=== PATIENT | male | born 1980 | race Caucasian/White ===

== ENCOUNTER 2018-10-12 00:29 | Inpatient (IN) ==
[2018-10-12] MEDS ORDERED: ASPIRIN PO ONE (00:43)
[2018-10-12] MEDS ORDERED: ASPIRIN ONE (00:49)
[2018-10-12 01:17] LABS: BASO# 0.06 X1000 (0.0-0.2); BASO% 0.7 % (0.0-0.8); EOS# 0.19 X1000 (0.0-0.7); EOS% 2.3 % (0.0-10.0); HEMATOCRIT 44.5 % (42.0-52.0); HEMOGLOBIN 15.6 g/dL (14.0-18.0); IMM GRAN# 0.05 X1000 (0.0-0.04); IMM GRAN% 0.6 % (0.0-0.5); LYMPH# 2.62 X1000 (1.2-3.4); LYMPH% 32.4 % (20.5-51.1); MCH 30.6 PG (27-31); MCHC 35.1 g/dL (33-37); MCV 87.4 FL (81-99); MONO# 0.81 X1000 (0.11-0.59); MPV 10.7 FL (7.4-10.4); NEUT# 4.36 X1000 (1.4-6.5); PLT 264 X1000 (130-400); RBC 5.09 XMIL (4.7-6.1); RDW 12.5 % (11.5-14.5); WBC 8.09 X1000 (4.8-10.8)
--- NOTE | 2018-10-12 01:19 | EKG Report ---
Test Performed on : 10/12/2018 00:36:24 AM Test Reason : CHEST PAIN/DIZZY Blood Pressure : / mmHG Vent. Rate : 068 BPM Atrial Rate : 068 BPM P-R Int : 160 ms QRS Dur : 090 ms QT Int : 390 ms P-R-T Axes : 050 030 033 degrees QTc Int : 414 ms Normal sinus rhythm. Normal ECG When compared with ECG of 31-AUG-2016 01:23, No significant change was found Unconfirmed Result
[2018-10-12 01:28] LABS: INR 0.85; PROTIME 12.3 Seconds (11.0-16.0); PTT 30.7 Seconds (22.3-41.8)
[2018-10-12 01:33] LABS: AGAP 12; CHLORIDE 107 mmol/L (98-107); POTASSIUM 4.2 mmol/L (3.5-5.1); SODIUM 144 mmol/L (136-145); TCO2 25 mmol/L (25-35)
[2018-10-12 01:34] LABS: ALB/GLOB RATIO 1.9; ALBUMIN 4.3 g/dL (3.5-5.0); ALKALINE PHOSPHATASE 47 U/L (32-122); BUN 15 mg/dL (8-22); CALCIUM 9.5 mg/dL (8.8-10.2); CK PROFILE 121 U/L (24-204); COSMO 288; CREATININE 0.8 mg/dL (0.7-1.2); ESTIMATED GFR > 60; GLUCOSE 108 mg/dL (70-104); GOT 25 U/L (10-34); GPT 52 U/L (10-44); TOTAL BILIRUBIN 0.18 mg/dL (0.20-1.00); TOTAL PROTEIN 6.6 g/dL (6.3-8.3)
[2018-10-12] MEDS ORDERED: MORPHINE IV ONE (01:53)
--- NOTE | 2018-10-12 03:35 | PROVIDER DOCUMENTATION ---
This chart was entered by Rosa Eid Scribe, acting as scribe for Mata Arellano MD. HPI-Chest Pain - General Chief Complaint: Chest Pain Stated Complaint: JITTERY, SOB, CHEST PAIN Time Seen by Provider: 10/12/18 01:23 Source: patient Allergies/Adverse Reactions: Patient Allergies Allergy/AdvReac Type Severity Reaction Status Date / Time diphenhydramine Allergy RASH Verified 08/31/16 01:28 [From Benadryl] Penicillins Allergy ANAPHYLAXIS Verified 08/31/16 01:28 Home Medications: Home Medication List Medication Instructions Recorded Confirmed Last Taken Type Metoprolol [Lopressor] 100 mg PO DAILY 08/31/16 08/31/16 Unknown History - History of Present Illness-CP Nature of Presenting Problem: Pt is 38/m presenting to ED w/ c/p that started yesterday and is mid chest and radiates into back between shoulder blades. Pt has hx of HI and CVA. Pt is not currently taking any medications. Location: reports: substernal Chest Pain Radiation: reports: shoulders (between shoulders) Quality of Pain: reports: stabbing Severity in ED: mild Onset/Duration: 24 hours ago Timing: still present Context/Activities at Onset: reports: none Modifying Factors: improves with: nothing Associated Symptoms: denies: nausea, vomiting Nitro Today/Relief: no nitro taken today Aspirin Treatment Today: no aspirin today Prior Chest Pain/Cardiac Workup: reports: heart attack Similar Symptoms Previously?: Yes Recently Seen Here or By Another Healthcare Provider: No Review of Systems - Adult - REVIEW OF SYSTEMS - ADULT Constitutional: denies: chills, fever Eyes: reports: no symptoms reported Ears, Nose, Mouth & Throat: reports: no symptoms reported Cardiovascular: reports: chest pain Respiratory: reports: no symptoms reported Gastrointestinal: denies: abdominal pain, nausea, vomiting Genitourinary: reports: no symptoms reported Musculoskeletal: reports: no symptoms reported Integumentary: reports: no symptoms reported Neurological: reports: no symptoms reported. denies: dizziness/vertigo, headache/migraines Psychiatric: reports: no symptoms reported Endocrine: reports: no symptoms reported Hematologic/Lymphatic: reports: no symptoms reported Allergic/Immunologic: reports: no symptoms reported All Other Systems: Reviewed and Negative Past History - Adult - PAST MEDICAL HISTORY-ADULT Review of Records: reports: Old Records Reviewed, Nursing Assessment Review, Medications Reviewed, Social history reviewed & non-contributory. Cardiovascular: reports: HI Neurological: reports: other (heat stroke) - SOCIAL HISTORY Smoking: cigarettes, greater than 1 pack/day Alcohol Use Frequency: never Living Situation: family Physical Exam-General - PHYSICAL EXAM-ADULT Initial Vital Signs Reviewed: Yes - CONSTITUTIONAL General Appearance: appears well, alert, no apparent distress - EYES Eyes: PERRL/EOMI, pink conjunctivae - HEAD, EARS, NOSE, MOUTH & THROAT HENMT: normocephalic/atraumatic, moist mucous membranes, normal ENT inspection, TMs normal, pharynx normal - NECK Neck: non-tender, full range of motion, supple, normal inspection - RESPIRATORY Respiratory: lungs clear - CARDIOVASCULAR Cardiovascular: regular rate, rhythm - GASTROINTESTINAL (ABDOMEN) Abdominal Exam: normal bowel sounds, non tender, soft - MUSCULOSKELETAL Extremity: normal range of motion, non-tender, normal gait, normal inspection - SKIN Integumentary: normal color, warm/dry - NEUROLOGIC Neurologic: grossly normal - PSYCHIATRIC Psych/Mental Status: normal mood/affect, normal thought content, normal thought process, oriented x 3 Progress - PLAN OF CARE/RESULTS Progress/Plan/Lab Results: Vital Signs - 8 hr 10/12/18 00:41 Temperature 98.2 F Pulse Rate 64 Respiratory Rate 20 Blood Pressure 145/88 O2 Sat by Pulse Oximetry 96 Laboratory Results - last 24 hr 10/12/18 10/12/18 10/12/18 00:50 00:50 00:50 WBC 8.09 RBC 5.09 Hgb 15.6 Hct 44.5 MCV 87.4 MCH 30.6 MCHC 35.1 RDW Std Deviation 12.5 Plt Count 264 MPV 10.7 H Immature Gran % (Auto) 0.6 H Neut % (Auto) 54.0 Lymph % (Auto) 32.4 [place] % (Auto) 10.0 H Eos % (Auto) 2.3 Baso % (Auto) 0.7 Immature Gran # (Auto) 0.05 H Neut # (Auto) 4.36 Lymph # (Auto) 2.62 [place] # (Auto) 0.81 H Eos # (Auto) 0.19 Baso # (Auto) 0.06 PT INR PTT (Actin FS) Sodium 144 Potassium 4.2 Chloride 107 Carbon Dioxide 25 Anion Gap 12 BUN 15 Creatinine 0.8 Estimated GFR/1.73 m2 > 60 BUN/Creatinine Ratio 19 Glucose 108 H Calculated Osmolality 288 Calcium 9.5 Total Bilirubin 0.18 L AST 25 ALT 52 H Alkaline Phosphatase 47 Creatine Kinase 121 Troponin T Oht-Y-Kptnqlkhadq Pept 95 H Total Protein 6.6 Albumin 4.3 Globulin 2.3 Albumin/Globulin Ratio 1.9 10/12/18 10/12/18 00:50 00:50 WBC RBC Hgb Hct MCV MCH MCHC RDW Std Deviation Plt Count MPV Immature Gran % (Auto) Neut % (Auto) Lymph % (Auto) [place] % (Auto) Eos % (Auto) Baso % (Auto) Immature Gran # (Auto) Neut # (Auto) Lymph # (Auto) [place] # (Auto) Eos # (Auto) Baso # (Auto) PT 12.3 INR 0.85 PTT (Actin FS) 30.7 Sodium Potassium Chloride Carbon Dioxide Anion Gap BUN Creatinine Estimated GFR/1.73 m2 BUN/Creatinine Ratio Glucose Calculated Osmolality Calcium Total Bilirubin AST ALT Alkaline Phosphatase Creatine Kinase Troponin T < 0.010 [id number]-[id number] Pept Total Protein Albumin Globulin Albumin/Globulin Ratio Orders Category Date Time Status Cardiac Monitoring DIRECTED Care 10/12/18 00:44 Active Nursing- Obtain EKG ONCE Care 10/12/18 01:53 Active Oxygen Therapy- ED Nursing DIRECTED Care 10/12/18 00:44 Active Saline Loc NOW Care 10/12/18 00:44 Active CHEST-2 VIEWS [RAD] Stat Exams 10/12/18 00:44 Taken CBC WITH ELECTRONIC DIFF [HEME] Stat Lab 10/12/18 00:50 Completed CK PROFILE [SP CHEM] Stat Lab 10/12/18 00:50 Completed COMPREHENSIVE METABOLIC PANEL [CHEM] Stat Lab 10/12/18 00:50 Completed PRO B-NATRIURETIC PEPTIDE Stat Lab 10/12/18 00:50 Completed PROTIME WITH INR [COAG] Stat Lab 10/12/18 00:50 Completed PTT [COAG] Stat Lab 10/12/18 00:50 Completed TROPONIN T Stat Lab 10/12/18 00:50 Completed Aspirin Med 10/12/18 00:49 Discontinued 325 mg .ROUTE .STK-MED ONE Aspirin Med 10/12/18 00:43 Discontinued 325 mg PO NOW ONE Morphine Med 10/12/18 01:53 Discontinued 4 mg IV NOW ONE CP/SOB/Palp >45 yrs of Age Stat Oth 10/12/18 00:43 Ordered EKG [EKG] Stat Ther 10/12/18 00:44 Draft EKG [EKG] Stat Ther 10/12/18 01:52 Ordered Result Diagrams: 10/12/18 00:50 10/12/18 00:50 - EKG 1 Time of EKG reading by physician:: 00:36 EKG Read and Signed by:: Mata Arellano EKG Interpretation (*Must complete 3 of following elements*): Normal (normal sinus rhythm, normal ECG) Rate: 68 Rhythm: sinus [place]: normal QRS: normal CA Interval: normal Departure - Departure Date of Disposition Decision: 10/12/18 Time of Disposition Decision: 03:34 DIAGNOSIS: Chest pain Qualifiers: Chest pain type: other chest pain Qualified Code(s): R07.89 - Other chest pain; R07.8 - Other chest pain Disposition: ADMITTED INPATIENT 09 Certified Medical Emergency: Emergent Condition: Stable Referrals and Follow-Ups: None,PCP [Primary Care Provider] - - Critical Care Note This patient required my direct & personal management of CC.: No Attestation - Physician/ NGUYEN Attestation Patient care was provided by Advanced Practice Provider:: No The physician spent face to face time with patient:: Yes Advanced Practice Provider documentation review:: Supervising physician onsite and consulted in the evaluation and care of this patient. The physician did have a face to face encounter with the patient. This chart was documented by the indicated scribe, (Rosa Eid, Scribe) and accurately reflects the services I performed and decisions made by me, Mata Arellano MD, as attested by the provider's signature.
--- NOTE | 2018-10-12 04:31 | HISTORY AND PHYSICAL ---
PRIMARY CARE PHYSICIAN: None. CHIEF COMPLAINT: Chest pain. HISTORY OF PRESENTING ILLNESS: A 38-year-old male with a history of hypertension and previous NM, who had presented to emergency department with complaint of having chest pain for the past day or so. He states that initially he felt like it was heartburn, and then became more dull with radiation to his back and shoulders. The patient was evaluated in the emergency department. Due to his presenting symptoms, it was thought that we will place him for observation for further evaluation and management. At the time of my examination, he denied any headache, fever, chills, nausea, vomiting, diarrhea, hemoptysis, or any weight changes, but complained of chest discomfort. PAST MEDICAL HISTORY: Includes NM, hypertension, TIA. PAST SURGICAL HISTORY: Appendectomy. ALLERGIES: Benadryl. CURRENT MEDICATIONS: None. SOCIAL HISTORY: A [id number] history of smoking. Denies any history of alcohol, or illicit drug use. FAMILY HISTORY: No history of coronary disease. REVIEW OF SYSTEMS: Fourteen-point review of system is as in HPI. Other systems negative. PHYSICAL EXAMINATION: GENERAL: Cooperative, friendly male. He is resting comfortably now. VITAL SIGNS: Temperature 98.2 degrees, pulse 64, respirations 20, blood pressure 145/88. HEENT: Atraumatic, normocephalic. Extraocular movements intact, PERRLA. CHEST: Clear to auscultation. CARDIOVASCULAR: Regular rate and rhythm. ABDOMEN: Soft. Positive bowel sounds. EXTREMITIES: No edema. NEUROLOGIC: He is awake, alert, and oriented x3. GENITOURINARY: No bladder distention. LABORATORIES AND STUDIES: WBCs 8.09, hemoglobin 15.6, hematocrit 44.5, platelets 264,000. Sodium 144, potassium 4.2, chloride 107, CO2 of 25, BUN 15, creatinine 0.8. Glucose is 108. Troponin 0.010. ASSESSMENT: This is a 38-year-old male with a history of hypertension and previous myocardial infarction, by history, had presented to emergency department with complaint of chest pain. He was evaluated in the emergency department. Due to his presenting symptoms, we will place him in observation for further evaluation and management. 1. Chest pain. 2. Hypertension. 3. Ongoing tobacco abuse. PLAN: 1. We will admit patient to medical floor with telemetry. 2. Continue with cardiac workup. Check EKG, serial cardiac enzymes. Have patient continue on aspirin. We will use sublingual nitroglycerin p.r.n. chest pain. 3. Consult Cardiology. 4. Monitor blood pressure closely. 5. Counseled patient extensively on smoking cessation. 6. We will continue to follow and reassess, make further recommendations based on patient's clinical course. cc: Bandar Dutta MD
[2018-10-12] MEDS ORDERED: ZOFRAN IV PRN (05:10)
[2018-10-12] MEDS ORDERED: TYLENOL PO PRN (05:10)
[2018-10-12] MEDS ORDERED: NITROGLYCERIN SL PRN (05:10)
[2018-10-12] MEDS: PRILOSEC PO SCH ×2 (05:29→06:04)
[2018-10-12] MEDS: NICODERM PATCH TD SCH ×3 (05:29→21:04)
--- NOTE | 2018-10-12 07:39 | Diag Imaging Result Doc PS360 ---
EXAM: CHEST-2 VIEWS 10/12/2018 HISTORY: cp TECHNIQUE: PA and lateral chest COMMENT: There is no evidence of acute cardiac or pulmonary disease. There are no previous studies. IMPRESSION: No acute disease. Electronically signed by Crow Quinonez 10/12/2018 7:36 AM
[2018-10-12] MEDS: ASPIRIN PO SCH (09:03)
--- NOTE | 2018-10-12 11:47 | CARDIOLOGY CONSULTATION ---
DATE: 10/12/2018 A 38-year-old gentleman. History of hypertension. Says he had a light heart attack and had an angiogram done in [facility] in [place] a couple of years back. No stent was placed. He comes to the hospital with symptoms of heartburn and some sharp chest pain with radiation to the shoulders. In the emergency room, his electrocardiogram was normal. The cardiac enzymes were negative. He does not take any medications. There is no history of palpitations. There is no dizziness or syncope. Does not complain of any fevers or chills. REVIEW OF SYSTEMS: A 14-point review of systems was done. Gastrointestinal System: There is no history of nausea, vomiting, diarrhea. There is no history of hematemesis or melena. Central Nervous System: No focal weakness to suggest a CVA or TIA. Genitourinary System: There is no dysuria or hematuria. PAST MEDICAL HISTORY: 1. The patient says that he had a light heart attack and was in [facility], underwent angiogram a couple of years back. No stent was placed. 2. History of hypertension. MEDICATION: Patient does not take any medications. PAST SURGICAL HISTORY: Appendectomy. ALLERGIES: He is allergic to Benadryl. SOCIAL HISTORY: He smokes a pack of cigarettes a daily. He smoked for at least 20 years. Denies any alcohol or illicit drug abuse. FAMILY HISTORY: No family history of coronary artery disease. PHYSICAL EXAMINATION: Blood pressure 145/88. Cardiovascular System: Normal jugular venous pressure. There is no thyromegaly. There is no carotid bruit. First and second heart sounds were heard. There was no S3 gallop. Respiratory System: Normal air entry. There are no crepitations or rhonchi. Abdomen was soft, nontender. There was no guarding or rigidity. Bowel sounds were heard. Central Nervous System: Alert. Was moving all 4 extremities. Examination of extremities revealed no pedal edema. HEENT: Atraumatic normocephalic. Pupils were equal and reacting to light. DIAGNOSTIC STUDIES: Sodium 144, potassium 4.2, BUN 15, creatinine 0.8. Cardiac enzymes were negative. ALT 52, AST 25, total bilirubin 0.18. WBC 8, hemoglobin 15.6, hematocrit 44, platelet count of 264. Chest x-ray was unremarkable. ASSESSMENT AND PLAN: Mr. Raymond Alonso is a 38-year-old gentleman who says he had a light heart attack and had angiogram done at [facility] a couple of years back. He comes in with complaints of chest pain. He has not been taking any medications. 1. From a cardiac standpoint, he has been ruled out for myocardial infarction by cardiac enzymes. 2. We will get an echocardiogram to assess cardiac and valvular function. 3. We will set him up to undergo a Cardiolite stress test to assess for and rule out ischemia. 4. He has been started on aspirin. Would recommend continuing the same. 5. He has history of hypertension. Blood pressure when he came in was 173/96. Would recommend treating the hypertension. 6. He had an angiogram done a couple of years back at [facility]. We will obtain records for the same. 7. We will start him on antihypertensive medications. Thank for the consult. We will follow hospital course. cc: Mookie Arana MD
[2018-10-12] MEDS ORDERED: G.I. COCKTAIL PO ONE (15:47)
[2018-10-13] MEDS: PRILOSEC PO SCH (06:20)
[2018-10-13 07:25] LABS: CHOLESTEROL 113 mg/dL (0-200); HDL 33 mg/dL (35-55); LDL 69 mg/dL; TRIGLYCERIDES 56 mg/dL (39-160); VLDL 11 mg/dL
--- NOTE | 2018-10-13 08:54 | ECHO REPORT ---
ORDER DATE: 10/12/2018 INTERPRETING PHYSICIAN: Dr. Mookie Arana. ECHOCARDIOGRAPHIC MEASUREMENTS: 1. Interventricular septum 1.0. 2. Left ventricular posterior wall 1.0. 3. Diastolic diameter 4.7. 4. Left atrium 3.8. 5. Aorta 3.2. SUMMARY OF THE 2-DIMENSIONAL IMAGIN. Aortic valve leaflets are trileaflet. 2. Pulmonic valve was normal. There was trace pulmonary regurgitation. 3. Tricuspid valve was normal. 4. Mitral valve was normal. 5. Normal left ventricular cavity size. Estimated ejection fraction of 65%. 6. There is trace mitral regurgitation. 7. Peak velocity across the aortic valve was less than 2 m/sec. There is no aortic stenosis or regurgitation. 8. Trace tricuspid regurgitation. Peak velocity across the tricuspid valve was 2.2 m/sec. 9. There is no pericardial effusion or obvious intracardiac mass or thrombus seen. cc: Mookie Arana MD
[2018-10-13] MEDS ORDERED: LOPRESSOR PO SCH (09:00)
[2018-10-13] MEDS ORDERED: LEXISCAN ONE (09:12)
[2018-10-13] MEDS: ASPIRIN PO SCH (11:10)
[2018-10-13] MEDS: NICODERM PATCH TD SCH (11:10)
[2018-10-13 13:02] VITALS: BP 129/67
--- NOTE | 2018-10-13 15:10 | Diag Imaging Result Document ---
PROCEDURE NAME: MYOCARDIAL PERF SCAN, STR/REST - 10/13/2018 STUDY: Rest/stress walking Lexiscan myocardial perfusion study. INDICATION: Chest pain and hypertension. DESCRIPTION: The patient came into the nuclear laboratory, received resting injection of technetium 99 sestamibi 15.1 mCi. Multiple tomographic views of the cardiac structures were obtained at rest. Subsequently, the patient underwent a walking Lexiscan protocol, 0.4 mg of Lexiscan infused. At peak infusion, injected with technetium 99 sestamibi 41 mCi. Multiple tomographic views of the cardiac structures were obtained following the completion of the exercise protocol. SUMMARY OF THE ELECTROCARDIOGRAPHIC PORTION OF THE STUDY: Resting electrocardiogram showed sinus rhythm, rate 63 beats per minute. Resting blood pressure 137/95. Resting ECG was normal. During the protocol the heart rate increased to 114 beats per minute. Blood pressure went up to 144/78. The patient reported no chest pain, shortness of breath, or palpitations. ECG showed no significant changes. Following the completion of the test, heart rate and blood pressure returned back to their baseline. In summary, electrocardiographic response to a walking Lexiscan protocol is normal. SUMMARY OF THE MYOCARDIAL PERFUSION PORTION OF THE STUDY: Poststress tomographic views of the left ventricle showed normal homogeneous distribution of radiotracer throughout the entire left ventricular myocardium. There is no evidence of any postexercise defect. Rest images show normal perfusion. Polar plots reveal the same. No evidence of neither inducible ischemia nor myocardial scar. Gated SPECT shows normal left ventricular systolic function. Ejection fraction is estimated at 70% with normal ventricular volumes and no wall motion abnormality. Lung/heart ratio is normal. TID is normal. SUMMARY: This study shows: 1. Normal electrocardiographic response to a walking Lexiscan protocol. 2. Normal poststress myocardial perfusion scan. There is no scintigraphic evidence of pharmacologically induced myocardial ischemia. 3. Normal left ventricular systolic function. Ejection fraction estimated at 70% with normal ventricular volumes and no wall motion abnormality. This study represents low risk for ischemic events. cc: MD Mookie Rowan MD [facility]
--- NOTE | 2018-10-13 19:35 | DISCHARGE SUMMARY ---
ADMISSION DATE: 10/12/2018 DISCHARGE DATE: 10/13/2018 DISPOSITION: Home. FOLLOWUP: 1. Dr. Arana. 2. Dr. Cortez. CONSULTATION DURING THIS ADMISSION: Cardiology was consulted. The patient was seen by Dr. Arana. INVASIVE PROCEDURES DONE DURING THIS ADMISSION: None. IMAGING STUDIES: Of significance, chest x-ray was normal. Echocardiogram showed an ejection fraction of 65% with no wall motion abnormality. Stress test showed no scintigraphic evidence of pharmacologically induced myocardial ischemia. ADMISSION DIAGNOSES: 1. Chest pain. 2. Hypertension. 3. Ongoing tobacco abuse. DIAGNOSES AT THE TIME OF DISCHARGE: 1. Atypical chest pain with normal electrocardiogram, troponin, and normal stress test. Most likely noncardiac origin. Patient is advised to follow up with Gastroenterology as well to rule out any upper gastrointestinal pathology. 2. Hypertension, controlled. 3. Ongoing tobacco abuse. The patient has been counseled. DISCHARGE MEDICATIONS: 1. Omeprazole 20 mg p.o. daily. 2. Metoprolol 100 mg p.o. daily. PRESENTING COMPLAINT: Chest pain. HISTORY OF PRESENTING COMPLAINT: Mr. Alonso is a 38-year-old male with a history of previous AL, hypertension, and TIAs. He came to the emergency department because of chest pain, concern for coronary artery disease. The patient was admitted to rule out cardiac cause. HOSPITAL COURSE: Mr Alonso was admitted to the medical floor. Cardiology was consulted. The patient was seen by Dr. Arana. Cardiac workup was completely done, including multiple EKGs. Troponin was trended three times, which were all negative. A stress test was done, which was also negative as well as an echocardiogram. This morning, Mr. Alonso refers that chest pain is improved. However, he also feels some heartburn, so he was started on omeprazole. He is advised to follow up with both Dr. Arana and Dr. Cortez. All the discharge instructions have been discussed with him. We stressed the upmost need for tobacco cessation. Time spent for discharge is 35 minutes. cc: Olegario Vick MD
== END 2018-10-13 16:19 | disposition home or self-care (01) | DRG 313 ==
LOC: ED 00:29 → 4N 04:34 → SUATTDRO 04:34
PROVIDERS: ATTEND Internal Medicine
CPT/HCPCS: 71020; 71046; 78452; 80053; 80061; 82550; 83880; 84484; 85025; 85610; 85730; 93005; 93017; 93306; 94761; A9270; A9500; J2270; J2785